=== PATIENT | female | born 1955 | race Caucasian/White ===

== ENCOUNTER 2024-09-01 16:10 | Outpatient (REF) | payer MEDICARE, SELFPAY ==
--- NOTE | 2024-09-01 15:00 | ORMUBX_PTH ---
PATIENT: EDIE CARRILLO LOC: [facility] U#:[id number] AGE/SX: 69/F ROOM: RE09/01/[address]: Roberto Bojorquez MD : 1955 BED: DIS: 09/01/2024 SPEC #: [id number] RECD: 09/02/24 12:58 STATUS: COLUMBA REQ #: [id number] MANDEEP: 09/01/24 15:[address]: Roberto Bojorquez DEPT: Surgical Specimen RECD BY: Carito Wood ENTERED: 09/02/24 12:59 SP TYPE: ORMUBX OTHR DR: Sarah Shepherd Tissues: 1 - MUCOSA, NOS Procedures: GROSS AND MICRO LEVEL 4 Comments: [id number]
== END 2024-09-01 16:11 | disposition home or self-care (01) ==
LOC: LBN 16:10
PROVIDERS: PCP Family Medicine; Visit Provider Otolaryngology
DX: D10.1 Benign neoplasm of tongue (principal)
CPT/HCPCS: 88305